=== PATIENT | male | born 1940 | race Caucasian/White ===

== ENCOUNTER 2017-12-17 06:55 | Day surgery (SDC) | payer MEDICARE, OTHER ==
[~2017-12-17] VITALS: Ht 175.3 cm; Wt 88.5 kg
[~2017-12-17 06:55] MED LIST: ASPIRIN EC81 MG PO; COUMADIN7.5 MG PO; DOK250 MG PO; ENALAPRIL MALEA10 MG PO; GABAPENTIN300 MG PO; HYDROMORPHONE HC4 MG PO; IRON18 MG PO; MELOXICAM15 MG PO; MIRALAX17 GM PO; OXYCODONE HCL5 MG PO; OXYCONTIN10 MG PO; PRILOSEC20 MG PO; VITAMIN C100 MG PO; XARELTO10 MG PO
[2017-12-17] MEDS ORDERED: XARELTO10 MG PO (10:01)
[2017-12-17] MEDS ORDERED: NEURONTIN300 MG PO (10:03)
[2017-12-17] MEDS ORDERED: OXYCODONE HCL5 MG PO (10:03)
--- NOTE | 2017-12-17 10:23 | NUR ---
12/17/17 Lenard3 Chula Webb 0957 PT ARRIVED TO PACU ON 8L VIA MASK AND MAINTAINING OWN AIRWAY. PT SNORING. 1001 PT WOKE UP WITH VERBAL STIMULI. PT DENIES PAIN, BACK TO SLEEP. 1003 O2 DECREASED TO 6L VIA MASK. 1006 MD AT BEDSIDE TALKING WITH PT. 1007 O2 REMOVED AND PT SAT UP IN HIGH FOWLERS. 1016 O2 NC PLACED ON PT AT 2L, O2 DECREASED TO 86%. 1020 O2 SAT 98% AND PT DENIES PAIN AND NAUSEA. PT ASLEEP OFF AND ON.
--- NOTE | 2017-12-17 11:57 | NUR ---
[id number]: PT ARRIVES TO DS TREATMENT ROOM FROM PACU VIA STRETCHER. PT IS AWAKE AND ALERT ON ARRIVAL. PT DENIES ANY PAIN OR FEELING IN HIS LEFT FOOT. PT STATES HE IS UNABLE TO FEEL HIS TOES OR MOVE THEM. PT IS PROVIDED ICED WATER, CRACKERS AND WARM BLANKET ON ARRIVAL. PT SPOUSE AND SON AT BEDSIDE. CALL LIGHT AT PT LEFT SIDE. PT VOIDS 150MLS YELLOW URINE IN URINAL IN BED ON ARRIVAL. [id number]: PT TOLERATES CRACKERS WELL AND STATES HE IS STILL HUNGRY. PT PROVIDED PUDDING AND SOUP AND SANDWICH ARE ORDERED. SCRIPT GIVEN TO SON AND PHARMACY CALLED IN REGARDS TO [facility]. PHARMACIST WANTING TO CLARIFY ORDER DR. NORTON CALLED IN. [id number]: PT TOLERATES PUDDING WITH NO C/O NAUSEA. PT VOIDS 250MLS INTO URINAL. LUNCH ARRIVES. SON AND SPOUSE OUT OF ROOM. RN ABLE TO VERIFY DR. NORTON' [place] ORDERS AND PHARMACY IS NOTIFIED. 1215: PT TOLERATES LUNCH WELL, NO C/O'S AT THIS TIME. CALL LIGHT REMAINS AT PT SIDE.
--- NOTE | 2017-12-17 12:04 | OR ---
[facility] [address] [place], [place] [address] Signed DATE OF OPERATION: 12/17/2017 SURGEON: Saira Brizuela MD PREOPERATIVE DIAGNOSIS: Pierre C displaced ankle fracture, left. POSTOPERATIVE DIAGNOSIS: Pierre C displaced ankle fracture, left. PROCEDURE PERFORMED: Open reduction and internal fixation, left lateral malleolus with syndesmosis fixation. CONGRESSIONAL DISTRICT AIDE: Claudia Epperson PA-C. Claudia was present in critical positioning, retraction, and wound closure as well as fracture reduced. ANESTHESIA: General with block. TOURNIQUET TIME: 33 minutes. IMPLANTS: Arthrex FibuLock 3 x 130 with 2 screws and a tight rope. BRIEF HISTORY: Lai is a 77-year-old gentleman, who suffered a ground level fall fracturing his ankle with mild displacement. The fracture was a Pierer C fracture with instability. Risks and benefits of operative treatment were discussed with him. He elected to proceed. DESCRIPTION OF PROCEDURE: Once consent was obtained, he was taken to the operating room. After adequate anesthesia, he was placed on operating table. All downside pressure points were well-padded. A well-padded proximal thigh tourniquet was placed. Leg was then prepped and draped in the standard sterile fashion. The fibula was marked out and the leg was exsanguinated using Esmarch bandage. A 1 inch incision was made at the fracture site and the fracture was reduced and held with a clamp. The distal fibula was approached through 1 cm incision distal to the tip. A guidewire was advanced from the tip of the fibula proximally across the fracture engaging the body of the fibula. This was Electronically Signed By: SAIRA BRIZUELA MD 12/17/17 1204 PATIENT NAME: LAI WILLSON OPERATIVE REPORT DATE OF : 44 REPORT #: [id number] PHYSICIAN: SAIRA BRIZUELA MD PCP: NO PRIMARY CARE PHYSICIAN REPORT IS CONFIDENTIAL AND NOT TO BE RELEASED WITHOUT AUTHORIZATION [facility] [address], [place] [address] Signed over-reamed using a 3.8 reamer distally. This was then exchanged for a small guidewire and all the way up the fibula. The casimiro was then selected and was placed into the wound distally, advanced from the tip of the fibula across fracture engaging the body of the fibula proximally. The proximal wings were then deployed with excellent stability. The 2 locking screws were then placed distally in the distal fibula. The syndesmosis was quite unstable at the end of this part of the procedure as we clamped it with a ball-tipped clamp through incision medially. The FibuLock was then placed through the casimiro across the tibia and out the incision on the medial side and following manufacture's instructions was deployed and tightened. Once it was tightened, again the stability was found to be good and the suture ends were cut. The wounds were all copiously irrigated with antibiotic solution, closed with #2-0 Monocryl and phil. Wounds were dressed with Mepilex Ag dressing, ABD, and Sma wrap. He was placed in a fracture boot and taken to the recovery room in satisfactory condition. All sponge, needle, and instrument counts were correct. Saira Brizuela MD BA/MODL /[id number] Copies: ~ Electronically Signed By: SAIRA BRIZUELA MD 12/17/17 1204 PATIENT NAME: LAI WILLSON OPERATIVE REPORT DATE OF : 44 REPORT #: [id number] PHYSICIAN: SAIRA BRIZUELA MD PCP: NO PRIMARY CARE PHYSICIAN REPORT IS CONFIDENTIAL AND NOT TO BE RELEASED WITHOUT AUTHORIZATION
--- NOTE | 2017-12-17 12:59 | NUR ---
PT TOLERATES LUNCH WELL WITH NO C/O NAUSEA. PT VOIDS 350 MLS LIGHT YELLOW URINE IN URINAL. BACK IN ROOM AT PT BEDSIDE. PT IS RESTING WITH EYES CLOSED, RESPIRATIONS EVEN AND UNLABORED, WITH AUDIBLE SNORING.
--- NOTE | 2017-12-17 13:06 | NUR ---
PT RESTING, SEEMED SOMEWHAT DISTANT. HIS AND SON WERE PRESENT FOR SUPPORT. PT HAD NO QUESTIONS, REQUESTED PRAYER. WILL FOLLOW NEEDED
--- NOTE | 2017-12-17 15:30 | NUR ---
[id number]: PT DRESSES SELF WITH HELP FROM SPOUSE. DC INSRUCTIONS GIVEN IN PRESENCE OF PT AND SPOUSE. BOTH VERBALIZE AN UNDERSTANDING OF THE INSTUCTIONS AND AGREE THEY WILL CONTACT DR. NORTON' OFFICE IF THEY HAVE FURTHER QUESTIONS. PT SUCCESSFULLY TRANSFERS SELF FROM BED TO WHEELCHAIR WITHOUT PUTTING ANY WEIGHT ON LEFT FOOT. PT IS DC'D FROM TREATMENT ROOM VIA WHEELCHAIR WITH SPOUSE.
== END 2017-12-17 14:20 | disposition home or self-care (01) ==
LOC: DS 06:55
PROVIDERS: Specialist
PROC: 0QSK0ZZ Reposition Left Fibula, Open Approach (ICD-10-PCS; principal; 2017-12-17 09:00)
DX: S82.432A Displaced oblique fracture of shaft of left fibula, initial encounter for closed fracture (principal); S82.392A Other fracture of lower end of left tibia, initial encounter for closed fracture; I10 Essential (primary) hypertension; K21.9 Gastro-esophageal reflux disease without esophagitis; Z88.0 Allergy status to penicillin; Z79.1 Long term (current) use of non-steroidal anti-inflammatories (NSAID); Z79.82 Long term (current) use of aspirin; Z79.899 Other long term (current) drug therapy
CPT/HCPCS: 01480; 62322; 73600; 80053; 85610; C1713; J0690; J1100; J2250; J2370; J2704; J2795; J3010; J7120

== ENCOUNTER 2018-03-19 08:37 | Day surgery (SDC) | payer MEDICARE, OTHER ==
[~2018-03-19] VITALS: Ht 175.3 cm; Wt 92.2 kg
[~2018-03-19 08:37] MED LIST changes: +NEURONTIN300 MG PO
[2018-03-19] MEDS ORDERED: SAW PALMETTO500 MG PO (09:00)
--- NOTE | 2018-03-19 10:50 | NUR ---
03/19/18 1050 Chula Webb 1042 PT ARRIVED TO PACU PT WAKES WITH TICTILE STIMULI. RESP EVEN AND UNLABORED. PT ASLEEP AND RESP EVEN AND UNLABORED WITH SMALL PERIODS OF APNEA. 1048 PT WOKE TO TICTILE STIMULI AND IS REORIENTED TO PACU.
--- NOTE | 2018-03-20 08:21 | EKG ---
[facility] [address] [facility] [place] [address] Signed Sinus bradycardia with premature supraventricular complexes Otherwise normal ECG When compared with ECG of 13-DEC-2017 14:44, premature supraventricular complexes are now present Vent. rate has decreased BY 31 BPM Criteria for Inferior infarct are no longer present T wave amplitude has increased in Lateral leads Confirmed by LUCRECIA VELEZ MD ([id number]) on 03/20/2018 8:21:17 AM Electronically Signed By: LUCRECIA VELEZ MD 03/20/18 0821 PATIENT NAME: VIANEY WILLSON CHRIS Electrocardiogram DATE OF : 44 PHYSICIAN: LUCRECIA VELEZ MD REPORT #: [id number] REPORT IS CONFIDENTIAL AND NOT TO BE RELEASED WITHOUT AUTHORIZATION
--- NOTE | 2018-03-20 09:36 | OR ---
[facility] [address], [place] [address] Signed DATE OF OPERATION: 03/19/2018 SURGEON: Karrie Wilson MD PREOPERATIVE DIAGNOSES: 1. Chest pain. 2. Hiatal hernia. 3. Screening. POSTOPERATIVE DIAGNOSES: 1. Small hiatal hernia. 2. Mild diffuse gastritis. 3. Moderate sigmoid diverticulosis. 4. Moderate internal hemorrhoids. PROCEDURES: 1. Esophagogastroduodenoscopy with CLOtest and biopsies of the pyloric bulb and antrum. 2. Colonoscopy without biopsy. ESTIMATED BLOOD LOSS: None. INDICATIONS: Lai is a 77-year-old gentleman asked to see me for upper and lower endoscopy. He spoke of a negative colonoscopy clear back in 2002. He said there is no family history of colon cancer or polyps. He thinks his bowel movements are good. In addition, he says he is noted to have a hiatal hernia. He has been having some substernal-subxiphoid chest pain. He had a chest x-ray, EKG, and labs and everything was fine. He said he can eat fine and food seems to go through the area fine. He said it never bothers him when he lays down. It only seems to bother him during the day. He has been on Prilosec. He was asked to undergo upper endoscopy as well. I gave Lai a pamphlet on both upper and lower endoscopy in the office. We reviewed the 2 tests along with the risks including, but not limited to gas bloating, crampy abdominal pain, bleeding, perforation, requiring surgery, and missed diagnosis. We also discussed the need for IV conscious sedation. He had expressed understanding and wished to proceed. PROCEDURE NOTE: Lai was taken into the endoscopy suite and placed in the supine semi-recumbent position. He was given preoperative antibiotics. The posterior oropharynx was anesthetized with Hurricaine spray. A bite block was utilized for the case. He was Electronically Signed By: KARRIE WILSON MD 03/20/18 0936 PATIENT NAME: LAI WILLSON OPERATIVE REPORT DATE OF : 44 REPORT #: [id number] PHYSICIAN: KARRIE WILSON MD PCP: ZANE WILLS MD REPORT IS CONFIDENTIAL AND NOT TO BE RELEASED WITHOUT AUTHORIZATION [facility] [address] [place], [place] [address] Signed given a total of 5 mg of Versed and 150 mcg of fentanyl to cover both cases. The adult gastroscope was introduced and advanced all the way out into the third portion of the duodenum under direct visualization of camera without difficulty. The duodenum was unremarkable. He looked like he had just a tiny bit of irritation in the pyloric bulb and a little bit in the antrum. We took biopsies in both places for pathologic review. The biopsies taken for CLOtest from the antrum. The rest of the stomach was unremarkable. Upon retroflexion of scope, I can see he has a small hiatal hernia. No gastric or esophageal varices. No Bossman ulcer. The scope was withdrawn up through the area of the GE junction, which was compliant without stricture. The Z-line remains intact. There was no Young mucosa. There was no distal esophagitis. I saw no stricture. No Schatzki ring. The middle and upper esophagus were unremarkable. After this, the gas was suctioned out and the gastroscope removed. Lai tolerated the procedure quite well. Lai was then rotated into the left lateral decubitus position. He was maintained on IV sedation with the Versed and fentanyl. Digital rectal exam was performed and I could feel the bottom of his prostate. It was enlarged, but smooth. The adult colonoscope was introduced and advanced all around into the cecum under direct visualization of camera without difficulty. His prep was good. The scope was slowly withdrawn. We could see diverticula in the sigmoid colon. They were moderate in size, [id number] in number, and scattered about. The rectum was unremarkable. Upon retroflexion of scope, he does have moderate internal hemorrhoid columns. After this, the gas was suctioned out and the colonoscope removed. Lai tolerated the procedure quite well. RECOMMENDATIONS: I will see Lai back in my office in 7 to 14 days to review his results and biopsies. Karrie Wilson MD ALB/MODL /[id number] cc: MD Zane Flores MD Electronically Signed By: KARRIE WILSON MD 03/20/18 0936 PATIENT NAME: LAI WILLSON OPERATIVE REPORT DATE OF : 44 REPORT #: [id number] PHYSICIAN: KARRIE WILSON MD PCP: ZANE WILLS MD REPORT IS CONFIDENTIAL AND NOT TO BE RELEASED WITHOUT AUTHORIZATION [address] [address] Signed Copies: KARRIE WILSON MD, DANIEL C MD ~ Electronically Signed By: KARRIE WILSON MD 03/20/18 0936 PATIENT NAME: ANAMIKALAI CHRIS OPERATIVE REPORT DATE OF : 44 REPORT #: [id number] PHYSICIAN: KARRIE WILSON MD PCP: ZANE WILLS MD REPORT IS CONFIDENTIAL AND NOT TO BE RELEASED WITHOUT AUTHORIZATION
== END 2018-03-19 11:52 | disposition home or self-care (01) ==
LOC: DS 08:37 → OPS 08:37
PROVIDERS: Colon & Rectal Surgery
PROC: 0DB78ZX Excision of Stomach, Pylorus, Via Natural or Artificial Opening Endoscopic, Diagnostic (ICD-10-PCS; 2018-03-19)
PROC: 0DJD8ZZ Inspection of Lower Intestinal Tract, Via Natural or Artificial Opening Endoscopic (ICD-10-PCS; principal; 2018-03-19 10:30)
PROC: 0DB98ZX Excision of Duodenum, Via Natural or Artificial Opening Endoscopic, Diagnostic (ICD-10-PCS; 2018-03-19 10:30)
DX: Z12.11 Encounter for screening for malignant neoplasm of colon (principal); K29.50 Unspecified chronic gastritis without bleeding; K57.30 Diverticulosis of large intestine without perforation or abscess without bleeding; K64.8 Other hemorrhoids; K44.9 Diaphragmatic hernia without obstruction or gangrene; N40.0 Benign prostatic hyperplasia without lower urinary tract symptoms; I10 Essential (primary) hypertension; K21.9 Gastro-esophageal reflux disease without esophagitis; G47.30 Sleep apnea, unspecified; H91.90 Unspecified hearing loss, unspecified ear; Z79.82 Long term (current) use of aspirin; Z79.899 Other long term (current) drug therapy
CPT/HCPCS: 86677; 99153; G0500; J2250; J3010; J7120